=== PATIENT | female | born 1950 | race Caucasian/White ===

== ENCOUNTER → 2016-06-13 | Outpatient (CLI) | payer BC ==
--- NOTE | 2016-06-14 18:39 | DI ---
XR KNEE 3 VW,06/13/2016 3:54 PM: Clinical History: History of right total knee. Previous Exam: March 17, 2016 Findings: 3 views of the right knee are obtained, and demonstrate postsurgical changes consistent with a right total knee arthroplasty. The surrounding soft tissues are unremarkable. Joint spaces preserved. There is no evidence of hardware loosening. Impression: Stable right knee arthroplasty.
== END ==
LOC: ORTHO 16:07
PROVIDERS: ATTEND Orthopaedic Surgery
DX: Z47.1 Aftercare following joint replacement surgery (principal); M25.561 Pain in right knee; Z96.651 Presence of right artificial knee joint
CPT/HCPCS: 73562

== ENCOUNTER → 2016-08-22 | Outpatient (CLI) | payer BC ==
[2016-08-22 10:58] LABS: BASOPHILS # (AUTO) 0.07 10*3/UL; EOSINOPHILS % (AUTO) 5.5 % (0-8); HEMATOCRIT 45.2 % (37.0-47.0); HEMOGLOBIN 15.3 g/dL (12.0-16.0); IMM GRAN % (AUTO) 0.1 % (0-5); IMM GRAN# (AUTO) 0.01 10*3/UL; LYMPHOCYTES # (AUTO) 1.31 10*3/uL; LYMPHOCYTES % (AUTO) 19.1 % (10-50); MEAN CORPUSCULAR HEMOGLOBIN 31.7 PG (27-31); MEAN CORPUSCULAR HGB CONC 33.8 g/dL (33-37); MEAN PLATELET VOLUME 11.1 FL (7.4-12.2); MONOCYTES # (AUTO) 0.85 10*3/UL (0.3-0.8); MONOCYTES % (AUTO) 12.4 % (5-15); NEUTROPHILS # (AUTO) 4.23 10*3/UL; NEUTROPHILS % (AUTO) 61.9 % (50-80); RDW COEFFICIENT OF VARIATION 12.2 % (11.5-14.5); RED BLOOD COUNT 4.83 10^6/uL (4.20-5.40); WHITE BLOOD COUNT 6.85 10^3/uL (4.8-10.8)
[2016-08-22 11:03] LABS: PLATELET MORPHOLOGY COMMENT NORMAL MORPHOLOGY (NORM)
[2016-08-22 11:09] LABS: AMYLASE 31 U/L (30-110); ASPARTATE AMINO TRANSFERASE 24 IU/L (8-39); BILIRUBIN,TOTAL 0.4 mg/dL (0.3-1.2); BLOOD UREA NITROGEN 12 mg/dL (7-22); CALCIUM 9.8 mg/dL (8.7-10.7); CHLORIDE 106 meq/L (98-112); CREATININE 0.6 mg/dL (0.50-1.20); EST GLOMERULAR FILTRATION > 60 (>60 ml/min/1.73m(2)); GLUCOSE 77 mg/dL (78-110); POTASSIUM 4.3 meq/L (3.8-5.2); SODIUM 139 meq/L (135-145); TOTAL PROTEIN 7.2 g/dL (6.1-8.0)
== END ==
LOC: MOB LAB 10:42
PROVIDERS: ATTEND Physician Assistant Medical
DX: R10.11 Right upper quadrant pain (principal); R11.0 Nausea; R53.83 Other fatigue; D35.00 Benign neoplasm of unspecified adrenal gland
CPT/HCPCS: 36415; 80053; 82150; 83690; 85025

== ENCOUNTER → 2016-08-22 | Outpatient (CLI) | payer BC ==
--- NOTE | 2016-08-22 18:40 | DI ---
CT ABDOMEN SCAN WITH IV CONTRAST, 08/22/2016 1:49 PM : Clinical History: Right upper quadrant abdominal pain. Previous Exam: None at this facility. Comparison is made with a CT bone density scan from 03/04/2016. Scans are performed from the lower lung bases through the liver and kidneys with IV contrast. 85 ml o f Isovue 300 was injected IV. Low density oral barium contrast (Volumen - low density CT enterography oral contrast) was administered for all phases of the exam. The lung bases are clear. The liver is normal. The gallbladder is not fully contracted but otherwise appears normal. There is enhancement of the gallbladder wall but there is no lucency in the wall to i ndicate acute cholecystitis. No gallstones are visualized. There is a 10 mm lesion of the right adren al gland. Review of the CT bone density scan from 03/04/2016, shows that the inferior half of this les ion was visible on that study but only in retrospect. The CT Hounsfield units on the previous study s howed that it was approximately -10 units indicating it is lipid rich. On the current study, the lesi on has a CT density in the range of 30 Hounsfield units. This lesion most likely represents a benign adenoma, but because of the enhancement, a followup study in 6-12 months can be performed to monitor this lesion. Both kidneys are normal in size, shape, position and contour. There is no hydronephrosis or hydroureter. No renal or ureteral calculi are present. There are no abnormal retrocrural or peria ortic nodes. No ascites is present. READIN. There is a 10 mm nodule in the right adrenal gland that measured fat density on the previous CT b one density scan from 03/04/2016, and this would indicate it represents a benign lipid rich adrenal ad enoma. The current study does show enhancement. Because of the enhancement, a followup study without and with IV contrast in 6-12 months can be performed to see if there has been a change. 2. The exam is otherwise normal. CT PELVIS SCAN WITH IV CONTRAST, 08/22/2016 1:49 PM: Clinical History: See above. Previous Exam: None at this facility. Scans are performed from just superior to the umbilicus to the symphysis pubis with IV contrast. This is the same bolus of contrast used for the CT scans of the abdomen. Scans through the lower abdomen and pelvis show no masses or abnormal fluid collections. There is no adenopathy. The appendix is surgically absent. The small bowel and terminal ileum are normal. There i s a small lipoma in the ileocecal valve. The colon is normal. There is a small umbilical hernia throu gh which only mesenteric fat has herniated. The uterus and ovaries are atrophic but normal. READING: Normal CT scan of the pelvis.
== END ==
LOC: CT 13:07
PROVIDERS: ATTEND Physician Assistant Medical
DX: R10.11 Right upper quadrant pain (principal)
CPT/HCPCS: 74177

== ENCOUNTER → 2016-09-19 | Outpatient (CLI) | payer BC ==
--- NOTE | 2016-09-19 15:10 | DI ---
AP PELVIS and RIGHT HIP, 09/19/2016 2:54 PM: Clinical History: Right hip pain. Previous Exam: None at this facility. The patient is morbidly obese. This detracts from the overall quality and significantly limits the di agnostic quality of the exam with respect to fine detail structures. There is no soft tissue abnormal ity. The bony structures of the pelvis are normal. 2 views of the right hip show asphericity of the f emoral head. There is no acetabular over coverage. The joint space is intact. Readin. No significant degenerative arthritic changes noted in the right hip. 2. The AP pelvis view is unremarkable.
== END ==
LOC: ORTHO 15:04
PROVIDERS: ATTEND Orthopaedic Surgery
DX: M25.551 Pain in right hip (principal); M16.11 Unilateral primary osteoarthritis, right hip
CPT/HCPCS: 73502

== ENCOUNTER 2016-09-23 11:26 | Day surgery (SDC) | payer BC ==
[~2016-09-23 11:26] MED LIST: BETAMET ACET/BETAMET NA PH 6 MG/1 ML - 5 ML ONE; Iopamidol Inj 61% 50 ML VIAL ONE; LIDOCAINE MPF 2% - 5 ML (20 MG/1 ML) ONE; LIDOCAINE W/ SODIUM BICARB 0.5 ML SYR ONE; ROPIVACAINE HCL 7.5 MG/1 ML - 20 ML ONE
[2016-09-23 12:36] VITALS: RESP 16
[2016-09-23] MEDS ORDERED: LIDOCAINE W/ SODIUM BICARB 0.5 ML SYR ONE (13:16)
[2016-09-23 13:27] VITALS: TEMP 97.8
== END 2016-09-23 13:37 | disposition home or self-care (01) ==
LOC: SDSC 11:26
PROVIDERS: ATTEND Orthopaedic Surgery
DX: M16.11 Unilateral primary osteoarthritis, right hip (principal)
CPT/HCPCS: 20610; 76000; J0702; J2001

== ENCOUNTER → 2016-12-29 | Outpatient (CLI) | payer BC ==
[2016-12-29 17:28] LABS: HEMATOCRIT 43.2 % (37.0-47.0); HEMOGLOBIN 14.6 g/dL (12.0-16.0); MEAN CORPUSCULAR HEMOGLOBIN 31.9 PG (27-31); MEAN CORPUSCULAR HGB CONC 33.8 g/dL (33-37); MEAN CORPUSCULAR VOLUME 94.5 FL (81-99); MEAN PLATELET VOLUME 11.1 FL (7.4-12.2); RED BLOOD COUNT 4.57 10^6/uL (4.20-5.40)
== END ==
LOC: LAB 16:32
PROVIDERS: ATTEND Orthopaedic Surgery
DX: M25.561 Pain in right knee (principal); Z96.651 Presence of right artificial knee joint
CPT/HCPCS: 36415; 85027; 85652; 86140

== ENCOUNTER → 2016-12-29 | Outpatient (CLI) | payer BC ==
--- NOTE | 2016-12-30 08:08 | DI ---
RIGHT KNEE, 12/29/2016 3:07 PM: Clinical History: Right knee pain. 06/13/2016 Previous Exam: 06/13/2016. AP and lateral views are submitted. The AP view is a weightbearing view. There is a mild genu valgus deformity unchanged from the prior exam. The patient is status post total right knee replacement and the prosthetic device articulates normally. There are 2 threaded screws inserted through the lateral femoral condyle into the femoral diaphysis. There is no evidence of loosening of the prosthetic devic e. Reading: Status post total right knee replacement, unchanged. A mild genu valgus deformity is present.
--- NOTE | 2016-12-30 11:59 | DI ---
LUMBAR SPINE SERIES, 12/29/2016 2:47 PM: Clinical History: Right sciatic nerve pain. Previous Exam: None at this facility. 3 routine upright views are submitted. The vertebral bodies are of normal height and size. The disc s paces are normal. The pedicles are normal. 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 Both SI joints are normal . Readin. No significant disc space narrowing is appreciated. 2. There are extensive degenerative arthritic changes in the apophyseal joints bilaterally between L 3-4 and L5-S1.
== END ==
LOC: ORTHO 15:55
PROVIDERS: ATTEND Orthopaedic Surgery
DX: M54.31 Sciatica, right side (principal); M25.561 Pain in right knee; M47.817 Spondylosis without myelopathy or radiculopathy, lumbosacral region; Z96.651 Presence of right artificial knee joint
CPT/HCPCS: 72100; 73560

== ENCOUNTER 2017-01-28 08:45 | Emergency (ER) | payer BC, OTHER ==
[2017-01-28 09:05] VITALS: RESP 16; TEMP 96.7
--- NOTE | 2017-01-28 09:08 | PDOC ---
Lower Extremity Injury HPI - General Chief Complaint: Lower Extremity Problem/Injury Stated Complaint: fall, right knee pain Date Seen by Provider: 01/28/17 Time Seen by Provider: 09:00 Source: POSITIVE: Patient Exam Limitations: POSITIVE: No limitations Nurse's Notes Reviewed & Considered: Yes - History of Present Illness Initial Comments: The patient is a 66-year-old female who presents to the emergency department with right knee pain. She states she has a history of previous total knee replacement of the right knee approximately a year ago. 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 She fell landing directly on her right knee. She did not try to bear weight on the right leg after the fall. Currently her knee is a little bit sore however she is able to bend the knee without significant increase in pain. She denies any other associated injuries or complaints. Have you received a tetanus shot in the past 10 years?: No - Patient Home Medications Home Medications: Home Medications Phenytoin Sodium Extended [Dilantin] 300 mg PO QHS #90 cap 03/24/16 Phenobarbital 4 tab PO QHS #120 tab 09/22/16 Hydrocodone/Acetaminophen [Royal 5-325 Tablet] 1 each PO Q6H PRN #10 tablet - Patient Allergies Allergies/Adverse Reactions: Allergies Allergy/AdvReac Type Severity Reaction Status Date / Time dexlansoprazole AdvReac Intermediate ITCHING Unverified 08/22/16 09:53 [From Kapidex] Past Medical History - heen HEENT History: Dentures/Partials Additional HEENT History: wears RX glasses. UPPERS Cardiovascular History: Denies History Respiratory History: Denies History, Snoring Gastrointestinal History: GERD Genitourinary History: Denies History Endocrine History: Denies History Musculoskeletal History: Arthritis, Gout, Limited ROM Prosthesis or Implant: No Additional Musculoskeletal History: FOOT PAIN, KNEE PAIN Neurological History: Seizures, Motion Sickness Additional Neurological History: HAS NOT HAD A SEIZURE IN OVER 40 YEARS/ DX OF EPILEPSY Blood Disorders: Denies History Psychiatric History: Denies History History of Sexually Transmitted Diseases: No LMP: 35 yrs Obstetrical History: Delivery Cancer History: Denies History In Past Year Been Physically Harmed or Verbally Threatened: No History of MDRO: No History of Other Communicable Diseases: No Tobacco Use: Former Smoker Alcohol Use: Occasionally Substance Use Type: None Previous Surgical History: Yes Type / Date of Surgery: APPY/ C SECTION X 2/ COLONOSCOPY/ EGD/ HEEL SPUR REMOVAL AND FASCIITIS RELEASE OF LEFT FOOT/ TUBAL/R KNEE SCOPE Anesthesia Reactions: No Malignant Hyperthermia: No Significant Family History: Heart disease, Cancer Additional Family History: MOTHER AND DAD BOTH HAD COLON CA Past Medical History Reviewed: Reviewed - No Changes ROS - Limitations ROS Limitations: No Limitations, Other (please comment) (Review of systems otherwise noncontributory) Lower Ext Complaint Exam - General Appearance General Appearance: POSITIVE: Alert, Cooperative, No Acute Distress - Extremities Lower Extremity: POSITIVE: Other (Examination the right knee reveals a midline incision from previous surgery, there is no obvious swelling or deformity, she does have good active range of motion, some mild tenderness to the anterior aspect of her knee) Neurovascular/Tendon: POSITIVE: Sensation Normal, Motor Normal, No Vascular Compromise - HEENT HEENT: POSITIVE: Head Inspection Nml - Respiratory / CVS Respiratory / CVS: POSITIVE: Breath Sounds Normal, No Respiratory Distress, Heart Sounds Normal, Regular Rate/Rhythm Lower Ext Complaint Progress - Results Reviewed by me Xrays/CTs/US Reviewed by me: Yes Radiology Findings: X-ray of the right knee reveals no evidence of fracture or hardware malalignment. - Patient's Progress MDM / ED Course: X-ray of the right knee does not reveal any evidence of issues with the hardware from previous surgery nor is there evidence of acute fracture. She likely does have some contusion/strain of the right knee from her fall. She was placed in an Abdon wrap for comfort. She was advised to ice and elevate the right knee. She can take ibuprofen 600 mg every 6 hours as needed for pain. In addition she was given a prescription for Royal 5/325 which she can take as needed at night. The patient prefers to go back to work and I think that is reasonable. - Consult Counseled: POSITIVE: Patient, RE: Radiology Results, RE: DX, RE: Need for F/U Patient Care Time - Estimated PCT Patient Care Time (In Minutes): 15 Vital Signs - Recent Vital Signs Vital Signs: Vital Signs (Last 8 hours) Temp Pulse Resp BP Pulse Ox 01/28/17 08:57 96.7 F L 77 16 122/83 96 - VS Reviewed Vital Signs Reviewed: Yes Discharge Clinical Impression: Knee contusion, Knee strain Discharge Disposition: Discharged to Home Prescriptions / Orders: Hydrocodone/Acetaminophen [Royal 5-325 Tablet] 1 each PO Q6H PRN #10 tablet PRN Reason: Pain Patient Instructions Given at Discharge: Contusion in Adults (ED), Knee Pain ( ED) Additional Instructions: The x-ray of the right knee reveals hardware which remains in place with no evidence of fracture or hardware displacement. Recommend Abdon wrap for comfort. Ice and elevate the right knee. Recommend ibuprofen 600 mg every 6 hours as needed for pain. In addition you were given a prescription for Royal 5/325 which he can take one every 6 hours as needed for more severe pain. Return to the emergency room if increased pain, worsening or change in symptoms. Recommend follow-up with orthopedics if continued pain in 3-5 days. Follow Up With: KARTIK HAWK [Primary Care Provider] -
--- NOTE | 2017-01-28 10:31 | DI ---
RIGHT KNEE, 01/28/2017 8:01 AM: Clinical History: Injury. The patient fell. Previous Exam: 06/13/2016; 12/29/2016. 3 views are submitted. The patient is status post total right knee replacement. The prosthetic device articulates normally. There is no evidence of loosening of the prosthetic device. No acute fracture is identified. There is a chest fine curvilinear bone density posterior to the femoral component of t he knee prosthesis on the lateral projection. This was present on the prior exams and has not changed . Readin. There is no acute fracture or dislocation. 2. Status post total right knee replacement. There is no evidence of loosening of the prosthetic dev ice.
== END 2017-01-28 09:40 | disposition home or self-care (01) ==
LOC: ER 08:45
DX: S80.01XA Contusion of right knee, initial encounter (principal); S86.911A Strain of unspecified muscle(s) and tendon(s) at lower leg level, right leg, initial encounter; W01.0XXA Fall on same level from slipping, tripping and stumbling without subsequent striking against object, initial encounter; Y99.0 Civilian activity done for income or pay
CPT/HCPCS: 73562; 99282